=== PATIENT | female | born 1950 ===

== ENCOUNTER 2018-12-28 01:34 | Outpatient (CLI) | payer MEDICARE | END 2018-12-28 23:59 | disposition home or self-care (01) | LOC: DIABETIC 01:34 | PROVIDERS: ATTEND Family Medicine | DX: E11.9 Type 2 diabetes mellitus without complications (principal); Z88.0 Allergy status to penicillin; Z79.899 Other long term (current) drug therapy | CPT/HCPCS: G0108 ==

== ENCOUNTER 2019-04-19 02:25 | Outpatient (CLI) | payer MEDICARE, BC | END 2019-04-19 23:59 | disposition home or self-care (01) | LOC: DIABETIC 02:25 | PROVIDERS: ATTEND Family Medicine | DX: E11.65 Type 2 diabetes mellitus with hyperglycemia (principal); Z88.0 Allergy status to penicillin; Z79.84 Long term (current) use of oral hypoglycemic drugs; Z79.899 Other long term (current) drug therapy | CPT/HCPCS: G0108 ==